=== PATIENT | male | born 1970 | race Caucasian/White ===

== ENCOUNTER 2021-12-27 13:48 | Emergency (ER) | payer MEDICAID ==
[~2021-12-27] VITALS: Ht 188 cm; Wt 100.0 kg
[2021-12-27] MEDS ORDERED: HYDROCODONE/ACETAMINOPHEN 5-325 MG TABLET PO ONE (14:45)
[2021-12-27 14:58] LABS: BASOPHILS % (AUTO) 0.5 % (0.0-2.0); EOSINOPHILS % (AUTO) 1.1 % (1.0-6.0); HEMATOCRIT 38.1 % (41-53); HEMOGLOBIN 13.5 g/dL (13.5-17.5); LYMPHOCYTES # (AUTO) 1.4 K/uL (1.0-4.8); LYMPHOCYTES % (AUTO) 15.9 % (22.0-44.0); MEAN CORPUSCULAR HEMOGLOBIN 30.2 pg (26.0-34.0); MEAN CORPUSCULAR HGB CONC 35.3 G/dL (31.0-37.0); MEAN CORPUSCULAR VOLUME 86 fL (80-100); MONOCYTES # (AUTO) 0.6 K/uL (0.1-1.0); MONOCYTES % (AUTO) 7.5 % (2.0-9.0); NEUTROPHILS # (AUTO) 6.4 K/uL (1.8-7.7); PLATELET COUNT (AUTO) 313 K/uL (150-450); RED BLOOD CELL COUNT(AUTO) 4.46 MIL/uL (4.50-5.90); RED CELL DISTRIBUTION WIDTH 12.6 % (11.5-14.5)
[2021-12-27] MEDS ORDERED: SODIUM CHLORIDE 0.9% 100 ML ONE (15:06)
[2021-12-27] MEDS ORDERED: IOHEXOL 350 MG/ML 100 ML VIAL ONE (15:06)
[2021-12-27 15:13] LABS: ALANINE AMINOTRANSFERASE 17 U/L (12-78); ALBUMIN 3.5 g/dL (3.4-5.0); ALKALINE PHOSPHATASE 112 U/L (46-116); ANION GAP 12 mmol/L (8-16); ASPARTATE AMINOTRANSFERASE 12 U/L (15-37); BILIRUBIN,TOTAL 0.4 mg/dL (0.1-1.0); CALCIUM, TOTAL 9.3 mg/dL (8.8-10.5); CARBON DIOXIDE 26 mmol/L (22-29); CHLORIDE 93 mmol/L (98-107); CREATININE 0.72 mg/dL (0.60-1.30); GLOMERULAR FILTR. RATE CALC > 60 mL/min (>60); POTASSIUM 4.3 mmol/L (3.5-5.1); SODIUM SERUM 131 mmol/L (136-145); TOTAL PROTEIN, SERUM 7.8 g/dL (6.4-8.2); UREA NITROGEN, BLOOD 17 mg/dL (7-18)
[2021-12-27 15:36] LABS: GLUCOSE,RANDOM 478 mg/dL (70-110)
[2021-12-27] MEDS ORDERED: SODIUM CHLORIDE 0.9% 1,000 ML IV ONE (16:15)
[2021-12-27] MEDS ORDERED: INSULIN REGULAR, HUMAN 100 UNITS/ML IVP ONE (16:15)
[2021-12-27] MEDS ORDERED: AMOX1TAB16 PO (18:01)
[2021-12-27] MEDS ORDERED: HYDR-4723 PO (18:01)
[2021-12-27 18:10] VITALS: BP 128/84
== END 2021-12-27 18:25 | disposition home or self-care (01) ==
LOC: EMS 13:55
DX: K04.7 Periapical abscess without sinus (principal); L03.211 Cellulitis of face; E11.9 Type 2 diabetes mellitus without complications
CPT/HCPCS: 36415; 70487; 80053; 82962; 85025; 96361; 96374; 99285; J1815; J7030; J7050; Q9967